=== PATIENT | female | born 1995 | race Caucasian/White ===

== ENCOUNTER 2019-12-14 20:46 | Observation (INO) | payer BC ==
[~2019-12-14] VITALS: Ht 170.2 cm; Wt 90.5 kg
[2019-12-14 22:46] LABS: BASO # 0.1 (0.0-0.2); BASO % 0.4 % (0.0-2.0); EOS % 0.2 % (0-4.0); GRAN # 14.8 (1.4-6.5); GRAN % 83.8 % (42.2-75.2); HEMATOCRIT 46.4 % (37.0-47.0); HEMOGLOBIN 16.3 g/dl (12.5-16.0); LYMPH # 1.7 (1.2-3.4); LYMPH % 9.4 % (20.0-51.0); MEAN CELL VOLUME 87 fl (80.0-100.0); MEAN CORPUSCULAR HEMOGLOBIN 31 pg (27.0-31.0); MEAN CORPUSCULAR HGB CONC 35 g/dl (33.0-37.0); MEAN PLATELET VOLUME 10.1 fl (7.4-10.4); MONO % 5.6 % (1.7-9.3); PLATELET COUNT 388 K/mm3 (130-400); RED BLOOD COUNT 5.31 M/mm3 (4.10-5.30); REDCELL DISTRIBUTION WIDTH-CV 11.7 % (11.5-14.5)
[2019-12-14 23:27] LABS: BILIRUBIN,TOTAL 0.7 mg/dL (0.0-1.0); C-REACTIVE PROTEIN 2.8 mg/dL (0.0-0.9); CALCIUM 10.2 mg/dL (8.4-10.2); CREATININE, serum 0.61 (0.52-1.25); POTASSIUM 4.2 mmol/L (3.4-5.0); TOTAL PROTEIN 8.4 gm/dL (6.4-8.2)
[2019-12-15] VITALS (13 sets, daily range): BP systolic 106–131; BP diastolic 50–79; PULSE 55–67; TEMP 97.9–99.2
--- NOTE | 2019-12-15 02:20 | NUR ---
Received patient from ED. She is alert and oriented. She denies pain right now. She has INT on left wrist. Will start LR 1000ml at 150ml/hr. Changed on patient's gown. Assesment and med rec completed. Lungs are clear. Patient requested for toothbrush and toothpast. Oral care done by patient independently. Instructed patient to maintain on NPO. Call light within reach.
[2019-12-15] MEDS ORDERED: LORYNA 3 MG-0.01 TAB PO (02:28)
--- NOTE | 2019-12-15 05:47 | NUR ---
Patient had uneventful night. She denies any abdominal pain. Maintained on NPO.
--- NOTE | 2019-12-15 08:55 | NUR ---
PATIENT CONSENT FORM SIGNED AND ON CHART. PATIENT MORNING SHIFT ASSESSMENT COMPLETE. PATIENT DENIES ANY COMPLAINS OF NAUSEA, VOMITING OR PAIN THIS MORNING. IV ANTIBIOTIV INFUSING TO LEFT WRIST IV VIA PUMP. PRESENT AT THE BEDSIDE. FLU VACCINE ADMINISTERED INTO RIGHT DELTOID. PATIENT TOLERATED WELL. CALL LIGHT WITHIN REACH. PATIENT DENIES ANY NEEDS AT THIS TIME.
--- NOTE | 2019-12-15 09:13 | NUR ---
PRE-OP MEDICATIONS GIVEN. LR TO GRAVITY FLOW TUBING AND INFUSING TO LEFT WRIST. PATIENT TAKEN TO PERIOP VIA BED BY JORGE ARVIZU. WILL WAIT FOR PATIENT ARRIVAL BACK TO ROOM 348.
[2019-12-15] MEDS ORDERED: NORCO 325 MG-51 TAB PO (10:58)
--- NOTE | 2019-12-15 11:35 | NUR ---
POST-OP VSS. ABDOMINAL LAP SITES X4 DRESSED WITH BANDAIDS AND ARE CD&I. PATIENT DENIES PAIN, BUT STATES THAT HER STOMACH FEELS UPSET. PATIENT WAS GIVEN NAUSEA MEDICATION IN THE PACU. WILL CONTINUE TO MONITOR.
--- NOTE | 2019-12-15 12:50 | NUR ---
PATIENT EATING AND DRINKING WITHOUT DIFFICULTIES. POST-OP VSS. WILL CONTINUE TO MONITOR.
--- NOTE | 2019-12-15 13:29 | NUR ---
SW met with patient with her and her bedside. Patient gave permission todiscuss information with spouse present. patient currently resides in [facility] with her [place] [phone] as her care support and EMR. PAtient is independent with ADL's and does have a DPOA. Patient indicated that she does not use any DME's ad her PCP is Dr. Viera. Patient noted that she does not have an upcoming appointment at this time. Patient reports that she gets her medications from [facility] with no concerns. Patient has declined any homes health needs. She was educated about community resources.
--- NOTE | 2019-12-15 15:09 | NUR ---
PATIENT GIVEN PO PAIN PILL PRIOR TO DISCHARGE FOR ABDOMINAL PAIN. POST-OP VSS. PATIENT VOIDING WITHOUT DIFFICULTIES. BILATERAL INT'S DISCONTINUED PER DISCHARGE. TIPS INTACT. PATIENT TOLERATED WELL. DISCHARGE INSTRUCTIONS REVIEWED WITH PATIENT AND . QUESTIONS SOUGHT AND ANSWERED.
--- NOTE | 2019-12-15 15:55 | NUR ---
PATIENT PERSONAL BELONGINGS GATHERED. PATIENT TAKEN TO PERSONAL VEHICLE VIA WHEELCHAIR BY SURGICAL STAFF. PATIENT DISCHARGED.
== END 2019-12-15 15:55 | disposition home or self-care (01) ==
LOC: COL.ER 20:46 → SURG 12-15 00:30
PROVIDERS: Emergency Medicine; ADMIT Surgery
DX: K80.00 Calculus of gallbladder with acute cholecystitis without obstruction (principal); F41.9 Anxiety disorder, unspecified
CPT/HCPCS: G0008; G0378; J0690; J1100; J1170; J1885; J2405; J2543; J2704; J3010; J7030; J7120; Q9967